=== PATIENT | male | born 1970 | race Caucasian/White ===

== ENCOUNTER 2021-01-14 15:08 | Emergency (ER) | payer OTHER, SELFPAY ==
--- NOTE | ~2021-01-14 | XR_ITS ---
EXAMINATION: XR ELBOW, RIGHT CLINICAL INFORMATION: Swelling after fall days ago. COMPARISON: None TECHNIQUE: AP, lateral, and oblique views of the right elbow. FINDINGS: No fracture or dislocation. No joint effusion. Small enthesophytes of the olecranon process. There is localized soft tissue swelling overlying the olecranon process. No radiopaque foreign body. Vascular calcifications. XR/XR elbow RT min 3V IMPRESSION: Soft tissue swelling without fracture.
[2021-01-14 15:11] VITALS: BP 118/72; PULSE 97; RESP 16; TEMP 36.7; O2SAT 100; BMI 24.3
[2021-01-14] MEDS: cephALEXin 500 MG CAPSULE PO (16:29)
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
== END 2021-01-14 17:39 | disposition home or self-care (01) ==
PROVIDERS: Emergency Provider Emergency Medicine Emergency Medical Services
DX: M70.21 Olecranon bursitis, right elbow (principal); Y93.55 Activity, bike riding; E11.9 Type 2 diabetes mellitus without complications
CPT/HCPCS: 73080; 99283